=== PATIENT | female | born 1955 | race Caucasian/White ===

== ENCOUNTER 2017-01-20 13:18 | Emergency (ER) | payer OTHER, MEDICARE, BC ==
[~2017-01-20] VITALS: Ht 172.7 cm; Wt 72.6 kg
--- NOTE | ~2017-01-20 | CR145 ---
[facility] A Service of [facility] & [facility] RADIOLOGY TEXT RESULTS PATIENT: JOHN FORD LOCATION: [facility] : 53 UNIT #: [id number] AGE: [address]: Jp Coulter MD SEX: F ORDER DR: [id number] [facility] [address] [place], [place] [address] [id number] MR#: [id number] Acc #: [id number] NAME: JOHN FORD : 1955 SEX: F STUDY DATE/TIME: 01/20/2017 UNIT: [facility] ROOM: STUDY DESCRIPTION: CR Hip 1 View Rt Attending Physician: Jp Coulter M.D. Ordering Physician: Jp Coulter M.D. Primary Care Physician: Orlando Cantu P.A.-C. MEDICAL IMAGING REPORT This report is preliminary unless electronic signature is present EXAM Right hip 01/20/2017 1358 hours HISTORY 61-year-old woman with severe right hip pain. History of prior total hip replacement 2004, possible dislocation. COMPARISON 03/16/2015. FINDINGS Single view of the hip demonstrates dislocation of the femoral component sitting superior and lateral to the acetabular cup. No fracture seen. IMPRESSION The femoral component of the hip replacement is dislocated from the acetabular component. No fracture seen. Dictated by... Regi Weldon M.D. THIS IS AN ELECTRONICALLY VERIFIED REPORT Regi Weldon M.D. at 01/21/2017 9:27 AM MEENAKSHI/matilda TD: 01/20/2017 21:23 JOB #: [id number] MEDICAL IMAGING REPORT Page 1 of 1 COPY
[~2017-01-20 13:18] MED LIST: ADALATCC; ADVAIR INH; ALBUTEROL17 GM INH; BACTRIM DS TABL1 TAB PO; COLACE PO; COUMADIN PO; COUMADIN3 MG PO; DIFLUCAN PO; ESTRACE PO; FIBER1 TAB.CHEW PO; FLAGYL PO; FLEXERIL PO; FLEXERIL10 MG PO; GLUCOSAMINE/CHONDROI PO; KEFLEX PO; KLONOPIN PO; LEVAQUIN PO; LIPITOR PO; LISINOPRIL PO; LISINOPRIL20 MG PO; LORTAB 5/325 PO; MIRALAX255 GM PO; MULTIPLE VITAMI1 T11 PO; NEURONTIN600 MG PO; NEXIUM PO; NORCO 5/325 TAB1 TAB PO; NORCO1 TAB 10/3 PO; PERCOCET5/325 PO; PHENERGAN PO; PHENERGAN25 M1 PO; PREVACID PO; SEROQUEL PO; SUBOXONE 8 MG-1 EACH SL; TRAZODONE HCL100 MG PO; TRAZODONE PO; ULTRAM PO; VASOTEC; VICODIN; VICODIN 5/500 T1 TAB PO; VICODIN PO; WELLBUTRIN; WELLBUTRIN PO; ZOCOR PO
== END 2017-01-20 15:14 | disposition home or self-care (01) ==
LOC: CED 13:18
DX: T84.020A Dislocation of internal right hip prosthesis, initial encounter (principal); I10 Essential (primary) hypertension; Z90.49 Acquired absence of other specified parts of digestive tract; Z90.710 Acquired absence of both cervix and uterus; Z96.641 Presence of right artificial hip joint; F17.200 Nicotine dependence, unspecified, uncomplicated; Z79.899 Other long term (current) drug therapy; X58.XXXA Exposure to other specified factors, initial encounter; Y92.9 Unspecified place or not applicable
CPT/HCPCS: 27250; 27265; 73501; 99152; 99284; J3010